=== PATIENT | female | born 1990 | race Caucasian/White ===

== ENCOUNTER 2019-04-29 22:40 | Emergency (ER) | payer OTHER, SELFPAY ==
[2019-04-29 22:41] VITALS: BP 133/75; PULSE 81; RESP 16; TEMP 36.8; O2SAT 100; BMI 26.9
--- NOTE | 2019-04-29 22:44 | ED_ITS ---
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 type: initial encounter Qualified Code(s): S50.12XA - Contusion of left forearm, initial encounter Contusion of forearm, right Qualifiers: Encounter type: initial encounter Qualified Code(s): S50.11XA - Contusion of right forearm, initial encounter Contusion of lower leg, left Qualifiers: Encounter type: initial encounter Qualified Code(s): S80.12XA - Contusion of left lower leg, initial encounter Abrasion of forearm, right Qualifiers: Encounter type: initial encounter Qualified Code(s): S50.811A - Abrasion of right forearm, initial encounter Condition: Stable Prescriptions: New ketorolac 10 mg tablet 10 mg PO Q6H PRN (Reason: pain) Qty: 14 RF: 0 Percocet 7.5-325 mg tablet 1 tab PO Q6H Qty: 10 RF: 0 Discharge Orders: Discharge Order (Routine); Ordered 04/30/19 Ordered By: Robert Blank Discharge Diet: Usual diet Discharge Activity: Limit activity as instructed Patient Instructions: Concussion (ED), Contusion in Adults (ED), Abrasion (ED) Activity Restrictions/Additional Instructions: Return for worsening mental status, worsening headache, vomiting, other concerning symptoms. Return also for worsening pain despite treatment. Ice should help. You should be free of any concussion symptoms such as headache, concentration problems, dizziness, nausea, before returning to work. 

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
--- NOTE | 2019-04-29 22:53 | ECG_ITS ---
Measurements Intervals Mena Rate: 64 P: 41 DE: 152 QRS: 16 QRSD: 106 T: 24 QT: 371 QTc: 384 SINUS RHYTHM No previous ECG available for comparison Electronically Signed On 04-30-2019 18:52:25 FORTUNE TELLER by Nakia Ward M.D. [email or web address]
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
[2019-04-29 23:03] LABS: Basophils % 0.5 %; Eosinophils # 0.1 10^3/uL (0.0-0.8); Eosinophils % 1.3 %; Hematocrit 40.6 % (37.0-47.0); Hemoglobin 13.9 g/dL (11.5-15.3); Lymphocytes # 3.2 10^3/uL (0.8-4.8); Lymphocytes % 43.2 %; Mean Corpuscular HGB Conc 34.2 g/dL (30.0-36.0); Mean Corpuscular Hemoglobin 31.5 pg (28.0-34.0); Mean Corpuscular Volume 92.1 fL (81-99); Mean Platelet Volume 10.8 fL (7.4-10.4); Monocytes # 0.4 10^3/uL (0.2-0.9); Monocytes % 5.1 %; Neutrophils # 3.7 10^3/uL (1.8-7.7); Neutrophils % 49.8 %; Nucleated Red Blood Cells % 0 %; Platelet Count 301 10^3/cmm (130-400); Red Blood Count 4.41 10^6/uL (4.1-5.3); Red Cell Distribution Width 11.5 % (12.1-15.1); White Blood Count 7.5 10^3/uL (4.0-10.0)
[2019-04-29 23:09] LABS: HCG, Serum Qual Negative (Negative)
[2019-04-29 23:15] LABS: Alanine Aminotransferase 12 U/L (0-33); Albumin Level 5.1 g/dL (3.5-5.2); Alkaline Phosphatase 64 IU/L (35-105); Anion Gap 17.5 (5-19); Aspartate Amino Transferase 20 U/L (0-32); Blood Urea Nitrogen 16 mg/dL (6-20); Calcium 9.8 mg/dL (8.5-10.5); Carbon Dioxide 23 mmol/L (22-29); Chloride 100 mmol/L (98-107); Globulin 2.6 g/dL (1.3-4.6); Glomerular Filtration Rate 98.3 mL/min (90-130); Glucose 112 mg/dL (74-109); Potassium 3.5 mmol/L (3.5-5.1); Sodium 137 mmol/L (136-145); Total Bilirubin 0.2 mg/dL (0.15-1.2); Total Protein 7.7 g/dL (6.6-8.7)
[2019-04-29] MEDS: lactated ringers 1,000 ML 999 ML IV (23:52)
[2019-04-30 00:01] LABS: Add Urine Microscopic? NO
[2019-04-30 00:12] LABS: Bilirubin Urine Neg (NEGATIVE); Blood Urine Neg (Negative); Glucose Urine UA Norm (Normal); Ketones Urine Negative (Negative); Leukocyte Esterase Urine Negative (Negative); Nitrate Urine Negative (Negative); Protein Urine Neg (Negative); Urine Appearance Clear (CLEAR); Urine Color Yellow (Yellow); Urobilinogen Urine Norm (Negative); pH Urine 7 (5-7)
[2019-04-30 00:24] LABS: Amphetamines Screen Urine Negative (Negative); Barbiturates Screen Urine Negative (Negative); Benzodiazepines Screen Urine Negative (Negative); Cocaine Screen Urine Negative (Negative); Opiate Screen Urine Negative (Negative); PCP Screen Urine Negative (Negative); THC Screen Urine Negative (Negative)
[2019-04-30 00:29] LABS: Alcohol Level < 10 mg/dL (0-10)
[2019-04-30 00:50] VITALS: BP 111/70; PULSE 63; RESP 16; O2SAT 99
== END 2019-04-30 00:51 | disposition home or self-care (01) ==
PROVIDERS: Emergency Provider Emergency Medicine
DX: S06.0X0A Concussion without loss of consciousness, initial encounter (principal); S00.03XA Contusion of scalp, initial encounter; S50.12XA Contusion of left forearm, initial encounter; S50.11XA Contusion of right forearm, initial encounter; S80.12XA Contusion of left lower leg, initial encounter; V89.2XXA Person injured in unspecified motor-vehicle accident, traffic, initial encounter
CPT/HCPCS: 70450; 71260; 72125; 72128; 72131; 73080; 73090; 73590; 74177; 80053; 80307; 81003; 84703; 85025; 86850; 86900; 93005; 96360; 99283; Q9967

== ENCOUNTER 2023-05-19 07:43 | Outpatient (RCR) | payer OTHER, SELFPAY | END 2023-06-03 23:59 | disposition home or self-care (01) | LOC: SPT 07:43 | PROVIDERS: PCP Registered Nurse; Visit Provider Registered Nurse | DX: M77.8 Other enthesopathies, not elsewhere classified (principal) | CPT/HCPCS: 97110; 97161 ==

== ENCOUNTER 2023-07-08 07:56 | Outpatient (RCR) | payer OTHER, SELFPAY | END 2023-07-08 23:59 | disposition home or self-care (01) | LOC: SPT 07:56 | PROVIDERS: PCP Registered Nurse; Visit Provider Registered Nurse | DX: M75.92 Shoulder lesion, unspecified, left shoulder (principal) | CPT/HCPCS: 97110 ==

== ENCOUNTER 2024-10-12 17:16 | Emergency (ER) | payer OTHER, BC, SELFPAY ==
[2024-10-12 17:19] VITALS: BP 116/71; PULSE 83; RESP 18; TEMP 36.6; O2SAT 95
[2024-10-12 17:43] VITALS: BP 101/65; BP 106/71; BP 109/66; PULSE 91; PULSE 93
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
[2024-10-12 18:38] LABS: Glucose Urine UA Negative (Normal); Nitrate Urine Negative (Negative); Specific Gravity, Urine 1.020 (1.005-1.030)
[2024-10-12 18:44] LABS: Add Urine Microscopic? YES
[2024-10-12 18:51] LABS: UA Slide Review UA Slide Review Perf
== END 2024-10-12 19:19 | disposition home or self-care (01) ==
PROVIDERS: Emergency Provider Physician Assistant; PCP Registered Nurse
DX: O26.891 Other specified pregnancy related conditions, first trimester (principal); Z3A.11 11 weeks gestation of pregnancy; E16.2 Hypoglycemia, unspecified; R55 Syncope and collapse
CPT/HCPCS: 36416; 81001; 82962; 99283